=== PATIENT | male | born 1935 | race Caucasian/White ===

== ENCOUNTER 2019-02-15 01:53 | Inpatient (IN) | payer BC, OTHER ==
[~2019-02-15] VITALS: Ht 175.3 cm; Wt 82.0 kg
[~2019-02-15 01:53] MED LIST: ACET325T33 GTB; BROM2.5T16 GTB; CARB1TAB34; ENOX40DI2 SC; Ipratropium 0.02% (Neb) HHN; LANS-6 GTB; LEVA1.25 HHN; LEVO500T10 PO; QUET25TA33 PO; QUET50TA22 PO
[2019-02-15] MEDS ORDERED: SODIUM CHLORIDE 0.9% 1L BAG IV* STA (02:03)
--- NOTE | 2019-02-15 02:51 | ERD ---
ER Documentation Chief Complaint Chief Complaint bib ra from residential for sob, fever, HPI 83-year-old male brought in from [facility] facility for fever and shortness of breath that started tonight. Patient is nonverbal and unable to provide a history. ROS Unable to obtain due to altered mental status Medications Home Meds Reported Medications Quetiapine Fumarate* (Quetiapine Fumarate*) 25 Mg Tablet, 25 MG PO QHS for 30 Days, #30 TAB 02/15/19 Carbidopa/Levodopa (Carbidopa-Levodopa 25-100 Tab) 1 Each Tablet, for 90 Days TAKE 2 TABLET(S) BY MOUTH 3 TIMES A DAYTAKE 2 TABLET(S) BY MOUTH 3 TIMES A DAY 02/15/19 Quetiapine Fumarate* (Quetiapine Fumarate*) 50 Mg Tablet, 50 MG PO QHS for 90 Days 02/15/19 Allergies Allergies: Coded Allergies: Sulfa (Sulfonamide Antibiotics) (Verified Allergy, Unknown, 02/15/19) latex (Verified Allergy, Unknown, 02/15/19) PMhx/Soc Medical and Surgical Hx: Unable to obtain Hx Neurological Disorder: Yes (s/d ) Hx Psychiatric Problems: Yes (dementia ) Hx Alcohol Use: No Hx Substance Use: No Hx Tobacco Use: No Smoking Status: Never smoker FmHx Unable to obtain Physical Exam Vitals Vital Signs Date Temp Pulse Resp B/P (MAP) Pulse Ox O2 O2 Flow FiO2 Time Delivery Rate 02/15/19 95 6.0 02:22 02/15/19 Nasal 6 02:10 Cannula 02/15/19 98.7 119 40 110/75 87 02:01 (87) 02/15/19 Nasal 6.0 02:01 Cannula 02/15/19 128 36 88 Nasal 3.0 02:00 Cannula Physical Exam Const: Chronically ill-appearing, in some respiratory distress, cachectic Head: Atraumatic Eyes: Normal Conjunctiva ENT: Dry mucous membranes. Normal external Ears, Nose and Mouth. Neck: Full range of motion. No meningismus. Resp: tachypneic, diminished breath sounds bilaterally, no wheezing or rales Cardio: Tachycardic with regular rhythm, no murmurs Abd: Soft, non tender, non distended. Normal bowel sounds Skin: No petechiae or rashes Back: No midline or flank tenderness Ext: No cyanosis, or edema Neur: Awake and alert, nonverbal, contracted in all 4 extremities Result Diagram: 02/15/19 0203 02/15/19 0203 Results 24 hrs Laboratory Tests Test 02/15/19 02:02 02/15/19 02:03 POC Venous Lactate 2.3 mmol/L White Blood Count 21.4 10^3/ul Red Blood Count 5.46 10^6/ul Hemoglobin 16.2 g/dl Hematocrit 49.7 % Mean Corpuscular Volume 91.0 fl Mean Corpuscular Hemoglobin 29.7 pg Mean Corpuscular Hemoglobin Concent 32.6 g/dl Red Cell Distribution Width 12.9 % Platelet Count 208 10^3/UL Mean Platelet Volume 11.1 fl Immature Granulocytes % 0.500 % Neutrophils % 94.2 % Lymphocytes % 1.7 % Monocytes % 3.0 % Eosinophils % 0.1 % Basophils % 0.5 % Nucleated Red Blood Cells % 0.0 /100WBC Immature Granulocytes # 0.100 10^3/ul Neutrophils # 20.2 10^3/ul Lymphocytes # 0.4 10^3/ul Monocytes # 0.6 10^3/ul Eosinophils # 0.0 10^3/ul Basophils # 0.1 10^3/ul Nucleated Red Blood Cells # 0.0 10^3/ul Prothrombin Time 13.5 Sec Prothrombin Time Ratio 1.1 INR International Normalized Ratio 1.02 Activated Partial Thromboplast Time 36.3 Sec Sodium Level 140 mmol/L Potassium Level 3.7 mmol/L Chloride Level 105 mmol/L Carbon Dioxide Level 27 mmol/L Anion Gap 8 Blood Urea Nitrogen 26 mg/dl Creatinine 1.12 mg/dl Est Glomerular Filtrat Rate mL/min mL/min Glucose Level 193 mg/dl Calcium Level 9.3 mg/dl Total Bilirubin 0.7 mg/dl Direct Bilirubin 0.00 mg/dl Indirect Bilirubin 0.7 mg/dl Aspartate Amino Transf (AST/SGOT) 36 IU/L Alanine Aminotransferase (ALT/SGPT) 14 IU/L Alkaline Phosphatase 48 IU/L Troponin I < 0.012 ng/ml Total Protein 6.8 g/dl Albumin 3.3 g/dl Globulin 3.50 g/dl Albumin/Globulin Ratio 0.94 Current Medications Medications Dose Sig/Burton Start Time Status Last (Trade) Ordered Route PRN Stop Time Admin Dose Reason Admin Sodium 2,340 ml BOLUS OVER 2 02/15/19 DC 02/15/19 Chloride HOURS STAT 02:03 02/15/19 02:10 (NS) IV* 02:05 Ondansetron 4 mg ER BRIDGE 02/15/19 HCl (Zofran PRN IV 03:30 Inj) NAUSEA/VOMITI 02/16/19 03:29 NG 650 mg ER BRIDGE 02/15/19 Acetaminophen PRN PO 03:30 (Tylenol .MILD PAIN 02/16/19 03:29 Tab) 1-3 OR TEMP Procedures/MDM EMERGENT LABS AND DIAGNOSTIC STUDIES: Lab Results above were reviewed and interpreted by me. CBC: Leukocytosis, concerning for infection likely secondary to infection. No anemia CMP: BUN elevated, likely secondary to dehydration. 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 Radiology Results as interpreted by Radiology below were reviewed by Lavinia Parkinson MD: Chest x-ray: Concerning for pneumonia Initial Nursing notes reviewed. Previous Medical Records requested via the Electronic Health Record. EMERGENCY DEPARTMENT COURSE / MEDICAL DECISION MAKING: Admit MDM: Patient presents with shortness of breath and hypoxia on room air. Presentation concerning for pneumonia. Treated with supplemental oxygenation for hypoxia with improvement. Broad-spectrum antibiotics and IV fluids given. Patient's infectious symptoms have not stabilized, and the patient is at risk of rapid decompensation. The patient will be admitted for careful hydration, antibiotic therapy, and infectious source control. Spoke with the patient's son, Sorin Lowry, who is power of sports attorney. Although the patient's advanced directive states that he does not want any emergent resuscitative treatment, including antibiotics, the patient's son would like us to treat him with antibiotics, fluids, and supplemental oxygenation. He just clarified that he does not want CPR or intubation. Severe Sepsis criteria: Infectious source: Pneumonia End organ damage indicated by: Lactate > 2.0 mmol/L Acute Resp Failure (sat < 92% w/o oxygen) Sepsis Management: Time of recognition of severe sepsis: 0200 Within 3 hours of recognition: Blood cultures x 2 before broad-spectrum antibiotics: Yes 30 ml/kg NS bolus Completed Initial lactate 2.3 Repeat lactate pending Septic Shock Assessment: Any lactic acid > 4.0 No Persistent hypotension (SBP < 90 or 40 mmHg drop, MAP < 65) despite 30 mL/kg IV fluid bolus No Accepting Care Team Current data and ongoing care discussed. Admitting Physician: Dr. Banda Transmission Tester(s): Outstanding Data: cultures Critical Care Time: 40 minutes Treatments/Evaluations: Close monitoring and treatment of unstable vital signs, cardiorespiratory, and neurologic status, while maintaining tight balance of fluid, respiratory, and cardiac interventions. This includes the administration of emergency fluid management while maintaining close respiratory support as well as the provision of immediate and broad-spectrum antibiotic therapy, while performing a simultaneous assessment for possible sources in order to direct ta rgeted therapy. This time includes discussing the case with the patient and the patients family.This time also includes the consideration for invasive and chemical support to prevent cardiopulmonary collapse. This time does not include all procedures stated elsewhere in this record. This time also includes reviewing old records, labs and radiological studies. This time includes examining and reexamining the patient. Additionally, this time also includes arranging care with admitting and consulting physicians. Departure Diagnosis: Primary Impression: Severe sepsis Additional Impression: Pneumonia Pneumonia type: due to unspecified organism Laterality: left Lung location: unspecified part of lung Qualified Codes: J18.9 - Pneumonia, unspecified organism Condition: Serious ISHA PARKINSON MD Feb 15, 2019 02:51
[2019-02-15] MEDS ORDERED: SOD CHLORIDE 0.9% 1,000 ML IV SCH (03:29)
[2019-02-15] MEDS ORDERED: ACETAMINOPHEN 325 MG TAB PO PRN ×2 (03:30)
[2019-02-15] MEDS ORDERED: ONDANSETRON 4 MG INJ IV PRN ×2 (03:30)
[2019-02-15] MEDS ORDERED: DOCUSATE SODIUM 100 MG CAP PO PRN (03:30)
[2019-02-15] MEDS ORDERED: BISACODYL (EC) 5 MG TAB PO PRN (03:30)
[2019-02-15] MEDS ORDERED: NACL 0.9% 3 ML SYG IV SCH (03:30)
[2019-02-15] MEDS ORDERED: VANCOMYCIN IV PER PHARMACY XX SCH (03:30)
--- NOTE | 2019-02-15 03:33 | HP ---
Date/Time of Note Date/Time of Note DATE: 02/15/19 TIME: 03:33 Assessment/Plan VTE Prophylaxis Pharmacological prophylaxis: heparin Lines/Catheters IV [facility]from [facility] Saline Lock Assessment/Plan Hospital Course This is a 83-year-old male being admitted to the telemetry floor for: #1 severe sepsis: Secondary to aspiration pneumonia/healthcare associated pneumonia, recurrent vs. residual. Patient was recently hospitalized at an outside hospital and then taken to [facility]. We will put the patient on broad-spectrum antibiotics of vancomycin and Zosyn. Await culture results. Trend lactic acid levels initial was 2.3. He did receive fluid resuscitation in the emergency department, will continue gentle IV fluid hydration. #2 Healthcare associated pneumonia versus aspiration pneumonia: recurrent vs. residual. Chest x-ray does show left-sided infiltrates. Broad-spectrum antibiotics of vancomycin and Zosyn. Culture results are pending. #3 Hypoxia: Likely secondary to underlying pneumonia. Supplemental O2. Monitor closely for decompensation. #4 advanced Parkinson's: Continue Sinemet, continue supportive care #5 chronic debility: Secondary likely to underlying Parkinson's. Continue supportive care. #6 dysphagia: Patient is status post G-tube, dietary consult for G-tube feedings. #7 DVT GI prophylaxis: Heparin subcu, no GI prophylaxis indicated CODE STATUS: Full code: I did have a lengthy discussion with the son at the bedside as mentioned in the HPI. At the current time he will be a full code as per the decision by the power of family law attorney his son. Further goals of care will be discussed with the son and the mother through the hospital course. Will consult palliative care dr. cuello to assist in goals of care and clarification of the advanced directives with the family. Further treatment strategy will be implemented as per the clinical course POWER OF RIB KNITTER CONTACT INFO: SON (MICHAEL BOWEN) [phone] Result Diagram: 02/15/19 0203 02/15/19 0203 Results 24hrs Laboratory Tests Test 02/15/19 02:02 02/15/19 02:03 POC Venous Lactate 2.3 *H White Blood Count 21.4 H Red Blood Count 5.46 Hemoglobin 16.2 Hematocrit 49.7 Mean Corpuscular Volume 91.0 Mean Corpuscular Hemoglobin 29.7 Mean Corpuscular Hemoglobin Concent 32.6 Red Cell Distribution Width 12.9 Platelet Count 208 Mean Platelet Volume 11.1 H Immature Granulocytes % 0.500 H Neutrophils % 94.2 H Lymphocytes % 1.7 L Monocytes % 3.0 Eosinophils % 0.1 Basophils % 0.5 Nucleated Red Blood Cells % 0.0 Immature Granulocytes # 0.100 H Neutrophils # 20.2 H Lymphocytes # 0.4 L Monocytes # 0.6 Eosinophils # 0.0 Basophils # 0.1 Nucleated Red Blood Cells # 0.0 Prothrombin Time 13.5 Prothrombin Time Ratio 1.1 INR International Normalized Ratio 1.02 Activated Partial Thromboplast Time 36.3 H Sodium Level 140 Potassium Level 3.7 Chloride Level 105 Carbon Dioxide Level 27 Anion Gap 8 Blood Urea Nitrogen 26 H Creatinine 1.12 Est Glomerular Filtrat Rate mL/min Glucose Level 193 Calcium Level 9.3 Total Bilirubin 0.7 Direct Bilirubin 0.00 Indirect Bilirubin 0.7 Aspartate Amino Transf (AST/SGOT) 36 Alanine Aminotransferase (ALT/SGPT) 14 Alkaline Phosphatase 48 Troponin I < 0.012 Total Protein 6.8 Albumin 3.3 Globulin 3.50 H Albumin/Globulin Ratio 0.94 HPI/ROS Admit Date/Time Admit Date/Time Hx of Present Illness Chief complaint: Fever, shortness of breath, productive cough History was obtained from the son at the bedside as patient was unable to provide history given his clinical condition and nonverbal at baseline. This is a 83-year-old male with a past medical history of advanced age Parkinson's disease who presented from [facility] with fever shortness of breath and a productive cough. Patient's son was with him at the bedside who is a power of family law attorney. Was recently taken to [facility] approximately 2 days ago after a approximate 4-day stay at outside hospital where he was treated for aspiration pneumonia. Patient was discharged to [facility] approximate 2 days ago and then prior to arrival to the emergency department he was noted to have a cough shortness of breath and a fever. He has a G-tube in place. Of note patient did have advanced directives in his chart which stated that he did not want to have CPR or intubation. He also did not want any IV fluids or antibiotics or artificial feedings or dialysis. I did have a lengthy discussion with his son regarding his advanced directives and the son states that when his father signed it he was not entirely clear on the exact details of the advanced directive. The son who is a power of family law attorney would like the patient to be a full code. He would like to discuss the case with his mother further and then make a decision regarding CODE STATUS and goals of care. The son though is certain that his father did not want to be in a prolonged vegetative state. Allergies: Sulfa Medications: See SARAHI BIANCHI Subjective hx not possible: pt non-verbal, pt critical PMH/Family/Social Past Medical History Advanced Parkinson's disease, chronic debility, dysphagia status post G-tube Medications Current Medications Ondansetron HCl (Zofran Inj) 4 mg ER BRIDGE PRN IV NAUSEA/VOMITING; Start 02/15/19 at 03:30; Stop 02/16/19 at 03:29 Acetaminophen (Tylenol Tab) 650 mg ER BRIDGE PRN PO .MILD PAIN 1-3 OR TEMP; Start 02/15/19 at 03:30; Stop 02/16/19 at 03:29 Vancomycin HCl (Vanco Iv Per Pharmacy) VANCOMYCIN PER PHARMACY PER PROTOCOL XX ; Start 02/15/19 at 03:30; Status UNV Piperacillin Sod/ Tazobactam Sod 100 ml @ 200 mls/hr Q6 IVPB ; Start 02/15/19 at 06:00; Status UNV Coded Allergies: Sulfa (Sulfonamide Antibiotics) (Verified Allergy, Unknown, 02/15/19) latex (Verified Allergy, Unknown, 02/15/19) Past Surgical History G-tube Family History Significant Family History: no pertinent family hx Social History Unable to obtain Smoking Status: Unknown if ever smoked Exam/Review of Systems Vital Signs Vitals Vital Signs Date Temp Pulse Resp B/P (MAP) Pulse Ox O2 O2 Flow FiO2 Time Delivery Rate 02/15/19 103 24 106/62 97 Nasal 6.0 03:00 (77) Cannula 02/15/19 98.7 02:01 Exam Exam General: Patient currently lying in bed he does track with his eyes, but is not displaying any movements and appears somewhat contracted. HEENT: Atraumatic, normocephalic. The pupils are equal, round and reactive. Extraocular motor are intact, mucous membranes dry Neck: Supple with full range of motion. No rigidity or meningismus Chest: Nontender Lungs: Coarse breath sounds bilaterally, greater on the left Heart: Sinus tachycardia Abdomen: Soft , G-tube in place, nontender, nondistended , bowel sounds are present. No guarding no rebound tenderness , No masses or organomegaly. No costovertebral temporal angle mass Extremities: Normal to inspection, no edema no cyanosis Neurologic: Awake, he does track with his eyes. Nonverbal. Further neurological exam limited given patient's clinical status and advanced Parkinson 's. Additional Comments EKG Sinus rhythm at 116 bpm with occasional PVCs Normal axis Normal intervals PROCEDURE: XR Chest. CLINICAL INDICATION: Sepsis. TECHNIQUE: Single frontal chest x-ray. COMPARISON: None. FINDINGS: Left subclavian dual-chamber pacemaker is present. Heart is normal size.. There is elevated right hemidiaphragm. There is patchy infiltrate at the left mid lung field. There is right basilar atelectasis. There is small right pleural effusion. There is no pneumothorax. There is partially visualized left shoulder replacement.. IMPRESSION: Cardiomegaly. Left perihilar infiltrate. Elevated right hemidiaphragm with basilar atelectasis. Small right pleural effusion. RPTAT: HMVK .Eliezer Blackman MD, MD Date Time Electronically viewed and signed by .Eliezer Blackman MD, on 02/15/2019 02:43 .K/ CC: ISHA LYNCH MD [id number] CHRISTY SHEFFIELD Feb 15, 2019 03:33
[2019-02-15] MEDS ORDERED: LEVALBUTEROL (NEB) 1.25 MG/0.5 ML AMP HHN PRN ×2 (04:00→11:30)
[2019-02-15] MEDS ORDERED: IPRATROPIUM (NEB) 0.5 MG/2.5 ML AMP HHN PRN ×2 (04:00→11:30)
[2019-02-15] MEDS ORDERED: VANCOMYCIN HCL 2 GM in SOD CHLORIDE 0.9% 500 ML IVPB ONE (05:00)
[2019-02-15 05:25] VITALS: BP 100/53; PULSE 101; RESP 20
[2019-02-15] MEDS ORDERED: HEPARIN 5,000 UNIT/1 ML VIAL SC SCH (06:00)
[2019-02-15] MEDS: PIPER-TAZO 3.375 GM IV (PMX) 100 ML IVPB SCH ×4 (07:01→23:50)
[2019-02-15 08:01] VITALS: BP 124/58; PULSE 99; RESP 18
[2019-02-15] MEDS ORDERED: CARBIDOPA/LEVODOPA (25/100) TAB PO SCH (09:00)
[2019-02-15] MEDS: CARBIDOPA/LEVODOPA (25/100) TAB GTB SCH (09:49)
--- NOTE | 2019-02-15 11:00 | PN ---
Date/Time of Note Date/Time of Note DATE: 02/15/19 TIME: 10:41 Assessment/Plan VTE Prophylaxis Pharmacological prophylaxis: LMWH Lines/Catheters IV Catheter Type (from [facility]): Saline Lock Assessment/Plan Hospital Course Subjective: Patient is nonverbal, will track, extremely lethargic, but tries to follow commands. Son [power of title attorney], , caregiver at bedside. We discussed overall clinical status. Objective: General: Alert, lethargic +++, extremely slow movements, tries to follow commands , non verbal as of yet HEENT: NC/ AT. PERRL. Neck: supple CVS: S1, S2, RRR. no murmurs. no pain on chest wall palpation Lungs: diminished ++, coarse bs Abd: soft, nontender, +BS, PEG tube without oozing or cellulitis Ext: no edema skin: diffuse different age range ecchymoses assessment and plan: 83-year-old male with a past medical history of advanced Parkinson's, dysphagia status post PEG tube placement in the last 4 weeks, recent hospitalization who was sent to us from longterm facility for fever and shortness of breath where he had been only for a couple of weeks He is being managed admitted and managed as follows: 1. Sepsis secondary to pneumonia -Patient was also just recently discharged after being managed for aspiration pneumonia, residual versus recurrent? -Continue empiric antibiotics -Ensure respiratory, urine, sputum cultures were obtained -Urinalysis and urine cultures pending, ensure these were sent as well. 2. Advanced Parkinson's on Sinemet therapy -We will hold Sinemet transiently due to severe lethargy, recommend to resume once patient's somewhat back to baseline. -Per family's report, until about 4 weeks ago, patient was able to transfer from bed to wheelchair with 1 person support 3. Chronic debility and lethargy likely secondary to #2 4. Dysphagia with aspiration concerns now on tube feedings 5. Hard of hearing Disposition: Spoke at length with patient's son and his family at the bedside, family have opted for patient to be a DO NOT RESUSCITATE and DO NOT INTUBATE, but at this time they wants continued aggressive measures. They also feel patient was prematurely discharged from the other hospital, but I have explained to them that this is a normal process. Patient cannot complete full antibiotic course in the hospital, he will be discharged to discontinue complete antibiotic course at the nursing facility. They have verbalized understanding. Result Diagram: 02/15/19 0203 02/15/19 0203 Results 24hrs Laboratory Tests Test 02/15/19 02:02 02/15/19 02:03 02/15/19 04:30 02/15/19 05:42 POC Venous Lactate 2.3 *H White Blood Count 21.4 H Red Blood Count 5.46 Hemoglobin 16.2 Hematocrit 49.7 Mean Corpuscular 91.0 Volume Mean Corpuscular 29.7 Hemoglobin Mean Corpuscular 32.6 Hemoglobin Concent Red Cell 12.9 Distribution Width Platelet Count 208 Mean Platelet 11.1 H Volume Immature 0.500 H Granulocytes % Neutrophils % 94.2 H Lymphocytes % 1.7 L Monocytes % 3.0 Eosinophils % 0.1 Basophils % 0.5 Nucleated Red 0.0 Blood Cells % Immature 0.100 H Granulocytes # Neutrophils # 20.2 H Lymphocytes # 0.4 L Monocytes # 0.6 Eosinophils # 0.0 Basophils # 0.1 Nucleated Red 0.0 Blood Cells # Prothrombin Time 13.5 Prothrombin Time 1.1 Ratio INR International 1.02 Normalized Ratio Activated 36.[address] Time Sodium Level 140 Potassium Level 3.7 Chloride Level 105 Carbon Dioxide 27 Level Anion Gap 8 Blood Urea 26 H Nitrogen Creatinine 1.12 Est Glomerular Filtrat Rate mL/min Glucose Level 193 Calcium Level 9.3 Total Bilirubin 0.7 Direct Bilirubin 0.00 Indirect Bilirubin 0.7 Aspartate Amino 36 Transf (AST/SGOT) Alanine 14 Aminotransferase ( ALT/SGPT) Alkaline 48 Phosphatase Troponin I < 0.012 Total Protein 6.8 Albumin 3.3 Globulin 3.50 H Albumin/Globulin 0.94 Ratio Blood Gas Specimen Blood arterial Source Arterial Blood 02/15/2019 4:45:46 Date Drawn AM Arterial Blood pH 7.456 H (Temp corrected) Arterial Blood 28.0 L pCO2 (Temp correct) Arterial Blood pO2 77.9 L (Temp corrected) Arterial Blood 19.3 L HCO3 Arterial Blood -2.9 Base Excess Arterial Blood 96.1 Oxygen Saturation Stuart Test ACCEPTAB Arterial Blood Gas Right Radial Puncture Site Arterial 0.7 Blood Carboxyhemog lobin Arterial Blood 0.4 Methemoglobin Blood Gas A-a O2 167.9 H Differential Oxyhemoglobin 95.0 Percent Blood Gas 37.0 Temperature Blood Gas Modality NASAL CANNULA FiO2 39.0 Blood Gas Notified KM Whom Blood Gas Notified 02/15/2019 4:56:19 Time AM Lactic Acid Level 1.5 Test 02/15/19 06:59 Lactic Acid Level 1.3 Exam/Review of Systems Exam Vitals Vital Signs Date Temp Pulse Resp B/P (MAP) Pulse Ox O2 O2 Flow FiO2 Time Delivery Rate 02/15/19 95 5.0 09:29 02/15/19 98.5 99 18 124/58 08:01 (80) 02/15/19 Nasal 06:20 Cannula Results Results 24hrs Laboratory Tests Test 02/15/19 02:02 02/15/19 02:03 02/15/19 04:30 02/15/19 05:42 POC Venous Lactate 2.3 *H White Blood Count 21.4 H Red Blood Count 5.46 Hemoglobin 16.2 Hematocrit 49.7 Mean Corpuscular 91.0 Volume Mean Corpuscular 29.7 Hemoglobin Mean Corpuscular 32.6 Hemoglobin Concent Red Cell 12.9 Distribution Width Platelet Count 208 Mean Platelet 11.1 H Volume Immature 0.500 H Granulocytes % Neutrophils % 94.2 H Lymphocytes % 1.7 L Monocytes % 3.0 Eosinophils % 0.1 Basophils % 0.5 Nucleated Red 0.0 Blood Cells % Immature 0.100 H Granulocytes # Neutrophils # 20.2 H Lymphocytes # 0.4 L Monocytes # 0.6 Eosinophils # 0.0 Basophils # 0.1 Nucleated Red 0.0 Blood Cells # Prothrombin Time 13.5 Prothrombin Time 1.1 Ratio INR International 1.02 Normalized Ratio Activated 36.[address] Time Sodium Level 140 Potassium Level 3.7 Chloride Level 105 Carbon Dioxide 27 Level Anion Gap 8 Blood Urea 26 H Nitrogen Creatinine 1.12 Est Glomerular Filtrat Rate mL/min Glucose Level 193 Calcium Level 9.3 Total Bilirubin 0.7 Direct Bilirubin 0.00 Indirect Bilirubin 0.7 Aspartate Amino 36 Transf (AST/SGOT) Alanine 14 Aminotransferase ( ALT/SGPT) Alkaline 48 Phosphatase Troponin I < 0.012 Total Protein 6.8 Albumin 3.3 Globulin 3.50 H Albumin/Globulin 0.94 Ratio Blood Gas Specimen Blood arterial Source Arterial Blood 02/15/2019 4:45:46 Date Drawn AM Arterial Blood pH 7.456 H (Temp corrected) Arterial Blood 28.0 L pCO2 (Temp correct) Arterial Blood pO2 77.9 L (Temp corrected) Arterial Blood 19.3 L HCO3 Arterial Blood -2.9 Base Excess Arterial Blood 96.1 Oxygen Saturation Stuart Test ACCEPTAB Arterial Blood Gas Right Radial Puncture Site Arterial 0.7 Blood Carboxyhemog lobin Arterial Blood 0.4 Methemoglobin Blood Gas A-a O2 167.9 H Differential Oxyhemoglobin 95.0 Percent Blood Gas 37.0 Temperature Blood Gas Modality NASAL CANNULA FiO2 39.0 Blood Gas Notified KM Whom Blood Gas Notified 02/15/2019 4:56:19 Time AM Lactic Acid Level 1.5 Test 02/15/19 06:59 Lactic Acid Level 1.3 Medications Medication Current Medications Ondansetron HCl (Zofran Inj) 4 mg ER BRIDGE PRN IV NAUSEA/VOMITING; Start 02/15/19 at 03:30; Stop 02/16/19 at 03:29 Acetaminophen (Tylenol Tab) 650 mg ER BRIDGE PRN PO .MILD PAIN 1-3 OR TEMP; Start 02/15/19 at 03:30; Stop 02/16/19 at 03:29 Vancomycin HCl (Vanco Iv Per Pharmacy) VANCOMYCIN PER PHARMACY PER PROTOCOL XX ; Start 02/15/19 at 03:30 Piperacillin Sod/ Tazobactam Sod 100 ml @ 200 mls/hr Q6 IVPB Last administered on 02/15/19at 07:01; Admin Dose 200 MLS/HR; Start 02/15/19 at 06:00 Sodium Chloride 1,000 ml @ 40 mls/hr Q24H IV Last administered on 02/15/19at 03:29; Admin Dose 40 MLS/HR; Start 02/15/19 at 03:29; Stop 02/15/19 at 15:28 IV Flush (NS 3 ml) 3 ml PER PROTOCOL IV ; Start 02/15/19 at 03:30 Ondansetron HCl (Zofran Inj) 4 mg Q6H PRN IV NAUSEA/VOMITING; Start 02/15/19 at 03:30 Docusate Sodium (Colace) 100 mg Q12H PRN PO .CONSTIPATION; Start 02/15/19 at 03:30 Bisacodyl (Dulcolax) 5 mg DAILY PRN PO .CONSTIPATION; Start 02/15/19 at 03:30 Heparin Sodium (Porcine) (Heparin (5000 Units/1ml)) 5,000 unit Q8 SC Last administered on 02/15/19at 07:02; Admin Dose 5,000 UNIT; Start 02/15/19 at 06:00 Levalbuterol (Xopenex Neb) 1.25 mg Q4H RESP THERAPY PRN HHN SHORTNESS OF ADNIEL TH; Start 02/15/19 at 04:00 Ipratropium [place] (Atrovent 0.02% (Neb)) 0.5 mg Q4H RESP THERAPY PRN HHN SHORTNESS OF BREATH; Start 02/15/19 at 04:00 Vancomycin/Sodium Chloride 250 ml @ 83.333 mls/ hr Q24H IVPB ; Start 02/16/19 at 05:00 Miscellaneous Information (*Rx Drug Level Order Reminder*) VANCOMYCIN TROUGH LEVEL 0400 ONCE XX ; Start 02/18/19 at 04:00; Stop 02/18/19 at 04:01 Acetaminophen (Tylenol Tab) 650 mg Q6H PRN GTB .PAIN 1-3 OR TEMP; Start 02/15/19 at 09:30 Carbidopa/Levodopa (Sinemet (25/ 100)) 1 tab DAILY GTB Last administered on 02/15/19at 09:49; Admin Dose 1 TAB; Start 02/15/19 at 09:00 Quetiapine Fumarate (Seroquel) 50 mg QHS GTB ; Start 02/15/19 at 21:00 NADEEM ASHLEY Feb 15, 2019 10:51
[2019-02-15 11:02] VITALS: BP 127/61; PULSE 90; RESP 18
[2019-02-15 12:44] VITALS: Ht 175.3 cm; Wt 82.0 kg
[2019-02-15] MEDS: LEVALBUTEROL (NEB) 0.63 MG/3 ML AMP HHN SCH ×2 (13:07→19:27)
[2019-02-15 16:08] VITALS: BP 124/58; PULSE 89; RESP 18
[2019-02-15 20:00] VITALS: BP 130/65; PULSE 79; RESP 20
[2019-02-15] MEDS ORDERED: QUETIAPINE 25 MG TAB GTB SCH (21:00)
[2019-02-15] MEDS ORDERED: QUETIAPINE 25 MG TAB PO SCH (21:00)
[2019-02-15] MEDS: QUETIAPINE 25 MG TAB GTB SCH (21:26)
[2019-02-16] VITALS: BP 101/51; PULSE 82; RESP 18
[2019-02-16] MEDS: LEVALBUTEROL (NEB) 0.63 MG/3 ML AMP HHN SCH ×4 (02:04→19:58)
[2019-02-16 04:00] VITALS: BP 103/55; PULSE 81; RESP 18
[2019-02-16] MEDS: PIPER-TAZO 3.375 GM IV (PMX) 100 ML IVPB SCH ×3 (05:46→17:25)
[2019-02-16] MEDS: VANCOMYCIN 1.25 GM/NS 250 ML 250 ML IVPB SCH (05:48)
[2019-02-16 07:07] VITALS: BP 124/59; PULSE 77; RESP 22
[2019-02-16] MEDS: ACETAMINOPHEN 325 MG TAB GTB PRN ×2 (09:08→16:01)
--- NOTE | 2019-02-16 11:05 | PN ---
Date/Time of Note Date/Time of Note DATE: 02/16/19 TIME: 11:03 Assessment/Plan VTE Prophylaxis [place] [facility] [place] risk: 9 SCD applied ([place] [facility] [place] Yes Pharmacological prophylaxis: heparin Lines/Catheters IV Catheter Type (from [facility]): Saline Lock Urinary Cath still in place: Yes Reason Cath still needed: urinary retention Assessment/Plan Problems: (1) Severe sepsis Status: Acute Comment: This is clinically improving with the IV antibiotic therapy. Please note he does have an abnormal chest x-ray, but normal urinalysis (2) Pneumonia Status: Acute Comment: Left lung pneumonia based on chest x-ray findings, clinically improving Qualifiers: Pneumonia type: due to unspecified organism Laterality: left Lung location: unspecified part of lung Qualified Codes: J18.9 - Pneumonia, unspecified organism (3) Parkinson's disease dementia Status: Chronic Comment: This time I believe is appropriate to go ahead and resume the carbidopa levodopa for him Qualifiers: Dementia behavioral disturbance: without behavioral disturbance Qualified Codes: G20 - Parkinson's disease; F02.80 - Dementia in other diseases classified elsewhere without behavioral disturbance (4) Nonverbal Status: Chronic Comment: Noted. (5) History of gastrostomy tube placement Status: Chronic Comment: Receiving enteral nutrition via G-tube (6) Debility Status: Chronic Comment: Continue to try and work with him and avoid any type of decubitus ulcers Result Diagram: 02/16/19 0525 02/16/19 0525 Results 24hrs Laboratory Tests Test 02/15/19 11:30 02/16/19 05:25 Urine Color YELLOW Urine Clarity CLEAR Urine pH 6.0 Urine Specific [place] 1.019 Urine Ketones TRACE A Urine Nitrite NEGATIVE Urine Bilirubin NEGATIVE Urine Urobilinogen NEGATIVE Urine Leukocyte Esterase NEGATIVE Urine Hemoglobin NEGATIVE Urine Glucose NEGATIVE Urine Total Protein NEGATIVE White Blood Count 11.0 #H Red Blood Count 4.25 #L Hemoglobin 12.8 #L Hematocrit 39.3 #L Mean Corpuscular Volume 92.5 Mean Corpuscular Hemoglobin 30.1 Mean Corpuscular Hemoglobin Concent 32.6 Red Cell Distribution Width 13.0 Platelet Count 178 Mean Platelet Volume 11.5 H Immature Granulocytes % 0.400 Neutrophils % 80.3 H Lymphocytes % 9.0 L Monocytes % 6.1 Eosinophils % 3.4 Basophils % 0.8 Nucleated Red Blood Cells % 0.0 Immature Granulocytes # 0.040 H Neutrophils # 8.9 H Lymphocytes # 1.0 Monocytes # 0.7 Eosinophils # 0.4 Basophils # 0.1 Nucleated Red Blood Cells # 0.0 Sodium Level 139 Potassium Level 3.8 Chloride Level 108 Carbon Dioxide Level 27 Anion Gap 4 L Blood Urea Nitrogen 23 H Creatinine 1.16 Est Glomerular Filtrat Rate mL/min Glucose Level 106 # Hemoglobin A1c 5.4 Lactic Acid Level 1.2 Calcium Level 8.5 Magnesium Level 1.8 Thyroid Stimulating Hormone (TSH) 1.380 Subjective 24 Hr Interval Summary Free Text/Dictation Patient has been off of his Sinemet and is nonverbal at this moment Subjective hx not possible: pt non-verbal Exam/Review of Systems Exam Vitals Vital Signs Date Temp Pulse Resp B/P (MAP) Pulse Ox O2 O2 Flow FiO2 Time Delivery Rate 02/16/19 97 2.0 08:55 02/16/19 91 16 Nasal 08:55 Cannula 02/16/19 98.5 124/59 07:07 (80) 02/15/19 33 19:27 Intake and Output 02/15/19 02/15/19 02/16/19 1515:00 23:00 07:00 IntakeIntake Total 100 ml 990 ml OutputOutput Total 600 ml BalanceBalance 100 ml 390 ml Constitutional: non-verbal Respiratory: clear to auscultation, normal air movement Cardiovascular: regular rate and rhythm, nl pulses Gastrointestinal: soft, nl liver, spleen, non-tender Results Results 24hrs Laboratory Tests Test 02/15/19 11:30 02/16/19 05:25 Urine Color YELLOW Urine Clarity CLEAR Urine pH 6.0 Urine Specific [place] 1.019 Urine Ketones TRACE A Urine Nitrite NEGATIVE Urine Bilirubin NEGATIVE Urine Urobilinogen NEGATIVE Urine Leukocyte Esterase NEGATIVE Urine Hemoglobin NEGATIVE Urine Glucose NEGATIVE Urine Total Protein NEGATIVE White Blood Count 11.0 #H Red Blood Count 4.25 #L Hemoglobin 12.8 #L Hematocrit 39.3 #L Mean Corpuscular Volume 92.5 Mean Corpuscular Hemoglobin 30.1 Mean Corpuscular Hemoglobin Concent 32.6 Red Cell Distribution Width 13.0 Platelet Count 178 Mean Platelet Volume 11.5 H Immature Granulocytes % 0.400 Neutrophils % 80.3 H Lymphocytes % 9.0 L Monocytes % 6.1 Eosinophils % 3.4 Basophils % 0.8 Nucleated Red Blood Cells % 0.0 Immature Granulocytes # 0.040 H Neutrophils # 8.9 H Lymphocytes # 1.0 Monocytes # 0.7 Eosinophils # 0.4 Basophils # 0.1 Nucleated Red Blood Cells # 0.0 Sodium Level 139 Potassium Level 3.8 Chloride Level 108 Carbon Dioxide Level 27 Anion Gap 4 L Blood Urea Nitrogen 23 H Creatinine 1.16 Est Glomerular Filtrat Rate mL/min Glucose Level 106 # Hemoglobin A1c 5.4 Lactic Acid Level 1.2 Calcium Level 8.5 Magnesium Level 1.8 Thyroid Stimulating Hormone (TSH) 1.380 Medications Medication Current Medications Vancomycin HCl (Vanco Iv Per Pharmacy) VANCOMYCIN PER PHARMACY PER PROTOCOL XX ; Start 02/15/19 at 03:30 Piperacillin Sod/ Tazobactam Sod 100 ml @ 200 mls/hr Q6 IVPB Last administered on 02/16/19at 05:46; Admin Dose 200 MLS/HR; Start 02/15/19 at 06:00 IV Flush (NS 3 ml) 3 ml PER PROTOCOL IV ; Start 02/15/19 at 03:30 Ondansetron HCl (Zofran Inj) 4 mg Q6H PRN IV NAUSEA/VOMITING; Start 02/15/19 at 03:30 Docusate Sodium (Colace) 100 mg Q12H PRN PO .CONSTIPATION; Start 02/15/19 at 03:30 Bisacodyl (Dulcolax) 5 mg DAILY PRN PO .CONSTIPATION; Start 02/15/19 at 03:30 Vancomycin/Sodium Chloride 250 ml @ 83.333 mls/ hr Q24H IVPB Last administered on 02/16/19at 05:48; Admin Dose 83.333 MLS/HR; Start 02/16/19 at 05:00 Miscellaneous Information (*Rx Drug Level Order Reminder*) VANCOMYCIN TROUGH L [place] 0400 ONCE XX ; Start 02/18/19 at 04:00; Stop 02/18/19 at 04:01 Acetaminophen (Tylenol Tab) 650 mg Q6H PRN GTB .PAIN 1-3 OR TEMP Last administered on 02/16/19at 09:08; Admin Dose 650 MG; Start 02/15/19 at 09:30 Carbidopa/Levodopa (Sinemet (25/ 100)) 1 tab DAILY GTB Last administered on 02/15/19at 09:49; Admin Dose 1 TAB; Start 02/15/19 at 09:00; Status Hold Quetiapine Fumarate (Seroquel) 25 mg QHS GTB Last administered on 02/15/19at 21:26; Admin Dose 25 MG; Start 02/15/19 at 21:00 Enoxaparin Sodium (Lovenox) 40 mg DAILY SC ; Start 02/16/19 at 14:00 Ipratropium [place] (Atrovent 0.02% (Neb)) 0.5 mg Q2H RESP THERAPY PRN HHN SHORTNESS OF BREATH; Start 02/15/19 at 11:30 Levalbuterol (Xopenex Neb) 1.25 mg Q2H RESP THERAPY PRN HHN SHORTNESS OF BREATH; Start 02/15/19 at 11:30 Levalbuterol (Xopenex Neb) 0.63 mg Q6H RESP THERAPY HHN Last administered on 02/16/19at 08:52; Admin Dose 0.63 MG; Start 02/15/19 at 14:00; Stop 02/18/19 at 13:59 KEVIN ALAN MD Feb 16, 2019 11:05
[2019-02-16 11:34] VITALS: BP 118/65; PULSE 78; RESP 18
[2019-02-16] MEDS: ENOXAPARIN 40 MG/0.4 ML SYG SC SCH (13:25)
[2019-02-16 15:41] VITALS: BP 137/65; PULSE 81; RESP 18
[2019-02-16] MEDS: QUETIAPINE 25 MG TAB GTB SCH (20:57)
[2019-02-17] VITALS (8 sets, daily range): BP systolic 105–165; BP diastolic 51–78; PULSE 75–101; RESP 18–20
[2019-02-17] MEDS: PIPER-TAZO 3.375 GM IV (PMX) 100 ML IVPB SCH ×4 (00:57→17:26)
[2019-02-17] MEDS: LEVALBUTEROL (NEB) 0.63 MG/3 ML AMP HHN SCH ×4 (01:40→21:05)
[2019-02-17] MEDS: VANCOMYCIN 1.25 GM/NS 250 ML 250 ML IVPB SCH (05:08)
[2019-02-17] MEDS: CARBIDOPA/LEVODOPA (25/100) TAB GTB SCH (09:05)
[2019-02-17] MEDS: ENOXAPARIN 40 MG/0.4 ML SYG SC SCH (09:19)
--- NOTE | 2019-02-17 14:11 | PN ---
Date/Time of Note Date/Time of Note DATE: 02/17/19 TIME: 14:10 Assessment/Plan VTE Prophylaxis Risk score (from [facility] [place]0 risk: 5 SCD applied (from [facility] [place]): Yes Pharmacological prophylaxis: heparin Lines/Catheters IV Catheter Type (from [facility]): Saline Lock Urinary Cath still in place: Yes Reason Cath still needed: urinary retention Assessment/Plan Problems: (1) Parkinson's disease dementia Status: Chronic Comment: With resumption of the Sinemet he is doing a little bit better. However I think that we could try and add in a little bit of bromocriptine to see if this will help as well. Qualifiers: Dementia behavioral disturbance: without behavioral disturbance Qualified Codes: G20 - Parkinson's disease; F02.80 - Dementia in other diseases classified elsewhere without behavioral disturbance (2) Pneumonia Status: Acute Comment: Continue with IV antibiotic therapy with positive clinical response Qualifiers: Pneumonia type: due to unspecified organism Laterality: left Lung location: unspecified part of lung Qualified Codes: J18.9 - Pneumonia, unspecified organism (3) History of gastrostomy tube placement Status: Chronic Comment: Functional and being used for his nutrition (4) Debility Status: Chronic Comment: Noted. Result Diagram: 02/17/19 0506 02/17/19 0506 Results 24hrs Laboratory Tests Test 02/17/19 05:06 White Blood Count 11.3 H Red Blood Count 4.28 L Hemoglobin 12.9 L Hematocrit 39.8 L Mean Corpuscular Volume 93.0 Mean Corpuscular Hemoglobin 30.1 Mean Corpuscular Hemoglobin Concent 32.4 Red Cell Distribution Width 12.9 Platelet Count 193 Mean Platelet Volume 11.3 H Immature Granulocytes % 0.300 Neutrophils % 81.7 H Lymphocytes % 6.0 L Monocytes % 7.4 Eosinophils % 3.9 Basophils % 0.7 Nucleated Red Blood Cells % 0.0 Immature Granulocytes # 0.030 Neutrophils # 9.2 H Lymphocytes # 0.7 L Monocytes # 0.8 Eosinophils # 0.4 Basophils # 0.1 Nucleated Red Blood Cells # 0.0 Sodium Level 138 Potassium Level 3.8 Chloride Level 105 Carbon Dioxide Level 32 H Anion Gap 1 L Blood Urea Nitrogen 20 Creatinine 1.13 Est Glomerular Filtrat Rate mL/min Glucose Level 111 Calcium Level 8.5 Subjective 24 Hr Interval Summary Free Text/Dictation Patient remains nonverbal, but it tends to the question her a little bit better Subjective hx not possible: pt non-verbal Exam/Review of Systems Exam Vitals Vital Signs Date Temp Pulse Resp B/P (MAP) Pulse Ox O2 O2 Flow FiO2 Time Delivery Rate 02/17/19 86 16 98 Nasal 4.0 13:42 Cannula 02/17/19 98.0 132/67 11:55 (88) 02/17/19 36 01:40 Intake and Output 02/16/19 02/16/19 02/17/19 1515:00 23:00 07:00 IntakeIntake Total 100 ml 740 ml OutputOutput Total 750 ml 1850 ml BalanceBalance 100 ml -750 ml -1110 ml Constitutional: non-verbal Respiratory: clear to auscultation, normal air movement Cardiovascular: regular rate and rhythm, nl pulses Gastrointestinal: soft, nl liver, spleen, non-tender Results Results 24hrs Laboratory Tests Test 02/17/19 05:06 White Blood Count 11.3 H Red Blood Count 4.28 L Hemoglobin 12.9 L Hematocrit 39.8 L Mean Corpuscular Volume 93.0 Mean Corpuscular Hemoglobin 30.1 Mean Corpuscular Hemoglobin Concent 32.4 Red Cell Distribution Width 12.9 Platelet Count 193 Mean Platelet Volume 11.3 H Immature Granulocytes % 0.300 Neutrophils % 81.7 H Lymphocytes % 6.0 L Monocytes % 7.4 Eosinophils % 3.9 Basophils % 0.7 Nucleated Red Blood Cells % 0.0 Immature Granulocytes # 0.030 Neutrophils # 9.2 H Lymphocytes # 0.7 L Monocytes # 0.8 Eosinophils # 0.4 Basophils # 0.1 Nucleated Red Blood Cells # 0.0 Sodium Level 138 Potassium Level 3.8 Chloride Level 105 Carbon Dioxide Level 32 H Anion Gap 1 L Blood Urea Nitrogen 20 Creatinine 1.13 Est Glomerular Filtrat Rate mL/min Glucose Level 111 Calcium Level 8.5 Medications Medication Current Medications Vancomycin HCl (Vanco Iv Per Pharmacy) VANCOMYCIN PER PHARMACY PER PROTOCOL XX ; Start 02/15/19 at 03:30 Piperacillin Sod/ Tazobactam Sod 100 ml @ 200 mls/hr Q6 IVPB Last administered on 02/17/19at 11:42; Admin Dose 200 MLS/HR; Start 02/15/19 at 06:00 IV Flush (NS 3 ml) 3 ml PER PROTOCOL IV ; Start 02/15/19 at 03:30 Ondansetron HCl (Zofran Inj) 4 mg Q6H PRN IV NAUSEA/VOMITING; Start 02/15/19 at 03:30 Docusate Sodium (Colace) 100 mg Q12H PRN PO .CONSTIPATION; Start 02/15/19 at 03:30 Bisacodyl (Dulcolax) 5 mg DAILY PRN PO .CONSTIPATION; Start 02/15/19 at 03:30 Vancomycin/Sodium Chloride 250 ml @ 83.333 mls/ hr Q24H IVPB Last administered on 02/17/19at 05:08; Admin Dose 83.333 MLS/HR; Start 02/16/19 at 05:00 Miscellaneous Information (*Rx Drug Level Order Reminder*) VANCOMYCIN TROUGH LEVEL 0400 ONCE XX ; Start 02/18/19 at 04:00; Stop 02/18/19 at 04:01 Acetaminophen (Tylenol Tab) 650 mg Q6H PRN GTB .PAIN 1-3 OR TEMP Last administered on 02/16/19at 16:01; Admin Dose 650 MG; Start 02/15/19 at 09:30 Carbidopa/Levodopa (Sinemet (25/ 100)) 1 tab DAILY GTB Last administered on 02/17/19 09:05; Admin Dose 1 TAB; Start 02/15/19 at 09:00 Quetiapine Fumarate (Seroquel) 25 mg QHS GTB Last administered on 02/16/19at 20:57; Admin Dose 25 MG; Start 02/15/19 at 21:00 Enoxaparin Sodium (Lovenox) 40 mg DAILY SC Last administered on 02/17/19at 09:19; Admin Dose 40 MG; Start 02/16/19 at 14:00 Ipratropium [place] (Atrovent 0.02% (Neb)) 0.5 mg Q2H RESP THERAPY PRN HHN SHORTNESS OF BREATH; Start 02/15/19 at 11:30 Levalbuterol (Xopenex Neb) 1.25 mg Q2H RESP THERAPY PRN HHN SHORTNESS OF BREATH; Start 02/15/19 at 11:30 Levalbuterol (Xopenex Neb) 0.63 mg Q6H RESP THERAPY HHN Last administered on 02/17/19at 13:34; Admin Dose 0.63 MG; Start 02/15/19 at 14:00; Stop 02/18/19 at 13:59 KEVIN ALAN MD Feb 17, 2019 14:11
[2019-02-17] MEDS: QUETIAPINE 25 MG TAB GTB SCH (21:51)
[2019-02-17] MEDS: BROMOCRIPTINE 2.5 MG TAB GTB SCH (21:51)
[2019-02-18] MEDS: PIPER-TAZO 3.375 GM IV (PMX) 100 ML IVPB SCH ×2 (00:15→06:24)
[2019-02-18] MEDS: LEVALBUTEROL (NEB) 0.63 MG/3 ML AMP HHN SCH ×2 (01:41→10:58)
[2019-02-18] MEDS: VANCOMYCIN 1.25 GM/NS 250 ML 250 ML IVPB SCH (05:15)
[2019-02-18 07:40] VITALS: BP 133/62; PULSE 87; RESP 18
[2019-02-18] MEDS: BROMOCRIPTINE 2.5 MG TAB GTB SCH ×2 (08:17→20:27)
[2019-02-18] MEDS: CARBIDOPA/LEVODOPA (25/100) TAB GTB SCH (08:17)
[2019-02-18] MEDS: ENOXAPARIN 40 MG/0.4 ML SYG SC SCH (08:24)
--- NOTE | 2019-02-18 09:56 | PN ---
Date/Time of Note Date/Time of Note DATE: 02/18/19 TIME: 09:55 Assessment/Plan VTE Prophylaxis Risk score (from Ns)>0 risk: 6 SCD applied (from Nsg): Yes Pharmacological prophylaxis: LMWH Lines/Catheters IV Catheter Type (from Nrsg): Saline Lock Urinary Cath still in place: Yes Reason Cath still needed: other (indicate) Assessment/Plan Hospital Course SUBJECTIVE: No fevers overnight OBJECTIVE: Vital signs-see below PHYSICAL EXAM: Constitutional: Obtunded male, not in acute distress HEENT: Head atraumatic and normocephalic. Eyes: Kept closed tight w/exam. NECK: Supple without lymph node. CHEST: Rhonchi bilaterally. No wheezing HEART: S1, S2. Regular rate and rhythm. ABDOMEN: With G-tube. Soft/non tender with no rebound tenderness. Bowel sounds were present. EXTREMITIES: Contracted extremities. No cyanosis, clubbing or edema. NEUROLOGIC: Obtunded/nonverbal PSYCHOSOCIAL: Unable to assess INTEGUMENTARY: No open wounds. ASSESSMENT AND PLAN:83 yo M w/ Parkinson's disease, dementia, G-tube placed, transferred from [facility] with fever/SOB, found to have sepsis with pneumonia. Sepsis Source: Pneumonia -Clinically improving -De-escalate antibiotics to Levaquin x14 days duration. Pneumonia, likely healthcare associated Sputum culture: Stenotrophomonas maltophilia sensitive to fluoroquinolone -DC Zosyn/vancomycin and start patient on Levaquin x2 weeks duration. Will give a dose of IV with transition to GJ tomorrow. -As needed breathing treatments Parkinson's disease/dementia -Continue Sinemet/bromocriptine -Supportive care History of G-tube placed -Functional and is being used for nutrition. Debility -Plan to send back to SNF. Prophylaxis: Lovenox/Prevacid Disposition: Continue current management. Likely DC planning to SNF in the morning with oral Levaquin to complete 2 weeks course. Patient was seen in collaboration with Result Diagram: 02/18/19 0354 02/18/19 0354 Results 24hrs Laboratory Tests Test 02/18/19 03:54 White Blood Count 10.4 Red Blood Count 4.49 L Hemoglobin 13.5 L Hematocrit 41.7 L Mean Corpuscular Volume 92.9 Mean Corpuscular Hemoglobin 30.1 Mean Corpuscular Hemoglobin Concent 32.4 Red Cell Distribution Width 13.1 Platelet Count 192 Mean Platelet Volume 11.4 H Immature Granulocytes % 0.300 Neutrophils % 81.2 H Lymphocytes % 6.6 L Monocytes % 8.7 Eosinophils % 2.3 Basophils % 0.9 Nucleated Red Blood Cells % 0.0 Immature Granulocytes # 0.030 Neutrophils # 8.4 H Lymphocytes # 0.7 L Monocytes # 0.9 Eosinophils # 0.2 Basophils # 0.1 Nucleated Red Blood Cells # 0.0 Sodium Level 138 Potassium Level 3.9 Chloride Level 104 Carbon Dioxide Level 30 Anion Gap 4 L Blood Urea Nitrogen 17 Creatinine 1.13 Est Glomerular Filtrat Rate mL/min Glucose Level 99 Calcium Level 9.1 Vancomycin Level Trough 8.5 L Exam/Review of Systems Exam Vitals Vital Signs Date Temp Pulse Resp B/P (MAP) Pulse Ox O2 O2 Flow FiO2 Time Delivery Rate 02/18/19 98.0 87 18 133/62 98 07:40 (85) 02/18/19 Nasal 4.0 01:43 Cannula 02/18/19 36 01:08 Intake and Output 02/17/19 02/17/19 02/18/19 1515:00 23:00 07:00 IntakeIntake Total 100 ml 1140 ml 1095 ml OutputOutput Total 2575 ml 2150 ml BalanceBalance 100 ml -1435 ml -1055 ml Results Results 24hrs Laboratory Tests Test 02/18/19 03:54 White Blood Count 10.4 Red Blood Count 4.49 L Hemoglobin 13.5 L Hematocrit 41.7 L Mean Corpuscular Volume 92.9 Mean Corpuscular Hemoglobin 30.1 Mean Corpuscular Hemoglobin Concent 32.4 Red Cell Distribution Width 13.1 Platelet Count 192 Mean Platelet Volume 11.4 H Immature Granulocytes % 0.300 Neutrophils % 81.2 H Lymphocytes % 6.6 L Monocytes % 8.7 Eosinophils % 2.3 Basophils % 0.9 Nucleated Red Blood Cells % 0.0 Immature Granulocytes # 0.030 Neutrophils # 8.4 H Lymphocytes # 0.7 L Monocytes # 0.9 Eosinophils # 0.2 Basophils # 0.1 Nucleated Red Blood Cells # 0.0 Sodium Level 138 Potassium Level 3.9 Chloride Level 104 Carbon Dioxide Level 30 Anion Gap 4 L Blood Urea Nitrogen 17 Creatinine 1.13 Est Glomerular Filtrat Rate mL/min Glucose Level 99 Calcium Level 9.1 Vancomycin Level Trough 8.5 L Medications Medication Current Medications Vancomycin HCl (Vanco Iv Per Pharmacy) VANCOMYCIN PER PHARMACY PER PROTOCOL XX ; Start 02/15/19 at 03:30 Piperacillin Sod/ Tazobactam Sod 100 ml @ 200 mls/hr Q6 IVPB Last administered on 02/18/19at 06:24; Admin Dose 200 MLS/HR; Start 02/15/19 at 06:00 IV Flush (NS 3 ml) 3 ml PER PROTOCOL IV ; Start 02/15/19 at 03:30 Ondansetron HCl (Zofran Inj) 4 mg Q6H PRN IV NAUSEA/VOMITING; Start 02/15/19 at 03:30 Docusate Sodium (Colace) 100 mg Q12H PRN PO .CONSTIPATION; Start 02/15/19 at 03:30 Bisacodyl (Dulcolax) 5 mg DAILY PRN PO .CONSTIPATION; Start 02/15/19 at 03:30 Acetaminophen (Tylenol Tab) 650 mg Q6H PRN GTB .PAIN 1-3 OR TEMP Last administered on 02/16/19at 16:01; Admin Dose 650 MG; Start 02/15/19 at 09:30 Carbidopa/Levodopa (Sinemet (25/ 100)) 1 tab DAILY GTB Last administered on 02/18/19at 08:17; Admin Dose 1 TAB; Start 02/15/19 at 09:00 Quetiapine Fumarate (Seroquel) 25 mg QHS GTB Last administered on 02/17/19at 21:51; Admin Dose 25 MG; Start 02/15/19 at 21:00 Enoxaparin Sodium (Lovenox) 40 mg DAILY SC Last administered on 02/18/19at 0 8:24; Admin Dose 40 MG; Start 02/16/19 at 14:00 Ipratropium [place] (Atrovent 0.02% (Neb)) 0.5 mg Q2H RESP THERAPY PRN HHN SHORTNESS OF BREATH; Start 02/15/19 at 11:30 Levalbuterol (Xopenex Neb) 1.25 mg Q2H RESP THERAPY PRN HHN SHORTNESS OF BREATH; Start 02/15/19 at 11:30 Levalbuterol (Xopenex Neb) 0.63 mg Q6H RESP THERAPY HHN Last administered on 02/18/19at 01:41; Admin Dose 0.63 MG; Start 02/15/19 at 14:00; Stop 02/18/19 at 13:59 Bromocriptine Mesylate (Parlodel) 2.5 mg BID GTB Last administered on 02/18/19at 08:17; Admin Dose 2.5 MG; Start 02/17/19 at 21:00 Vancomycin/Sodium Chloride 250 ml @ 83.333 mls/ hr Q18H IVPB ; Start 02/18/19 at 23:00 DARSHAN GARZA NP Feb 18, 2019 09:56
[2019-02-18] MEDS: LEVOFLOXACIN 500MG/D5W (PMX) 100 ML IVPB SCH (10:23)
[2019-02-18] MEDS: LANSOPRAZOLE 15 MG CAP GTB SCH (11:30)
[2019-02-18 11:32] VITALS: BP 127/70; PULSE 85; RESP 18
[2019-02-18 16:01] VITALS: BP 135/60; PULSE 86; RESP 20
[2019-02-18 20:11] VITALS: BP 129/63; PULSE 88; RESP 20
[2019-02-18] MEDS: QUETIAPINE 25 MG TAB GTB SCH (20:27)
[2019-02-18] MEDS ORDERED: VANCOMYCIN 1.25 GM/NS 250 ML 250 ML IVPB SCH (23:00)
[2019-02-18 23:46] VITALS: BP 108/59; PULSE 83; RESP 20
[2019-02-19 03:14] VITALS: BP 127/65; PULSE 77; RESP 20
[2019-02-19] MEDS: LANSOPRAZOLE 15 MG CAP GTB SCH (05:27)
[2019-02-19 07:48] VITALS: BP 141/65; PULSE 82; RESP 20
[2019-02-19 07:50] VITALS: BP 137/68; PULSE 87; RESP 18
[2019-02-19] MEDS: LEVOFLOXACIN 500MG/D5W (PMX) 100 ML IVPB SCH (09:52)
[2019-02-19] MEDS: BROMOCRIPTINE 2.5 MG TAB GTB SCH (09:52)
[2019-02-19] MEDS: CARBIDOPA/LEVODOPA (25/100) TAB GTB SCH (09:52)
[2019-02-19] MEDS: ENOXAPARIN 40 MG/0.4 ML SYG SC SCH (10:10)
--- NOTE | 2019-02-19 10:36 | PDOCDIS ---
Discharge Instructions CONDITION [id number] Patient Condition: [id number] Stable HOME CARE INSTRUCTIONS: [id number] Your diet recommendation is: [id number] TUBE FEED/fIBERSOURCE FOLLOW UP/APPOINTMENTS Follow-up Plan Discharge to SNF. DARSHAN GARZA NP Feb 19, 2019 10:36
--- NOTE | 2019-02-19 10:41 | DS ---
Date/Time of Note Date/Time of Note DATE: 02/19/19 TIME: 10:40 Discharge Summary Admission/Discharge Info Admit Date/Time Feb 15, 2019 at 03:25 Discharge Date/Time Discharge Diagnosis S/P Sepsis Source: Pneumonia Pneumonia, likely healthcare associated Sputum culture: Stenotrophomonas maltophilia sensitive to fluoroquinolone Parkinson's disease/dementia History of G-tube placed Debility DNR/DNI Patient Condition: Stable Procedures 02/15/2019: Chest x-ray: MPRESSION: Cardiomegaly. Left perihilar infiltrate. Elevated right hemidiaphragm with basilar atelectasis. Small right pleural effusion. RPTAT: [facility] Hospital Course 83 yo M w/ Parkinson's disease, dementia, G-tube placed, transferred from [facility] with fever/SOB, found to have sepsis with pneumonia. Patient was treated with antibiotics, bronchodilators with improvement in his symptoms. Patient sputum culture showed stenotrophomonas maltophilia sensitive to fluoroquinolone. Sepsis resolved. Patient was continued on home medication for underlying comorbidities along with addition of bromocriptine for underlying Parkinson's disease and dementia. Patient was continued on tube feeding. Patient remained more awake. He did not have any fevers over 48 hours. He did not have any leukocytosis. He did not have any cough. Lung sounds clear. At this time, patient is stable to be discharged [facility] where he can finish his Levaquin course via G-tube. Approximately 60-minute was spent on coordinating the discharge on this patient. Patient was seen in collaboration with Dr. Lerner. Home Meds Reported Medications Quetiapine Fumarate* (Quetiapine Fumarate*) 25 Mg Tablet, 25 MG PO QHS for 30 Days, #30 TAB 02/15/19 Carbidopa/Levodopa (Carbidopa-Levodopa 25-100 Tab) 1 Each Tablet, for 90 Days TAKE 2 TABLET(S) BY MOUTH 3 TIMES A DAYTAKE 2 TABLET(S) BY MOUTH 3 TIMES A DAY 02/15/19 Quetiapine Fumarate* (Quetiapine Fumarate*) 50 Mg Tablet, 50 MG PO QHS for 90 Days 02/15/19 Follow-up Plan Discharge to SNF. Primary Care Provider Not On Staff Doctor Pending Labs Laboratory Tests Test 02/19/19 06:06 White Blood Count 9.8 10^3/ul (4.8-10.8) Red Blood Count 4.30 10^6/ul (4.70-6.10) Hemoglobin 13.0 g/dl (14.0-18.0) Hematocrit 39.8 % (42.0-52.0) Mean Corpuscular Volume 92.6 fl (82.0-101.0) Mean Corpuscular Hemoglobin 30.2 pg (29.0-33.0) Mean Corpuscular Hemoglobin Concent 32.7 g/dl (32.0-37.0) Red Cell Distribution Width 12.7 % (11.5-14.5) Platelet Count 221 10^3/UL (140-415) Mean Platelet Volume 11.2 fl (7.4-10.4) Immature Granulocytes % 0.400 % (0.001-0.429) Neutrophils % 76.0 % (39.0-77.0) Lymphocytes % 9.0 % (15.0-51.0) Monocytes % 9.0 % (0.0-11.0) Eosinophils % 4.7 % (0.0-7.0) Basophils % 0.9 % (0.0-2.0) Nucleated Red Blood Cells % 0.0 /100WBC (0.0-0.0) Immature Granulocytes # 0.040 10^3/ul (0.0-0.031) Neutrophils # 7.5 10^3/ul (1.6-7.5) Lymphocytes # 0.9 10^3/ul (0.8-2.9) Monocytes # 0.9 10^3/ul (0.3-0.9) Eosinophils # 0.5 10^3/ul (0.0-0.5) Basophils # 0.1 10^3/ul (0.0-0.1) Nucleated Red Blood Cells # 0.0 10^3/ul (0.0-0.0) DARSHAN GARZA NP Feb 19, 2019 10:41
[2019-02-19 12:09] VITALS: BP 127/70; PULSE 78; RESP 18
[2019-02-19] MEDS ORDERED: GUAIFENESIN/DM (SR) TAB PO SCH (13:00)
[2019-02-19] MEDS ORDERED: GUAIFENESIN/DM 5ML CUP PO PRN (13:30)
[2019-02-19 17:03] VITALS: BP 130/75; PULSE 83; RESP 20
== END 2019-02-19 18:05 | DRG 871 ==
LOC: E/R 01:53 → 6WM 03:25
PROVIDERS: ADMIT Family Medicine; ATTEND Internal Medicine
DX: A41.9 Sepsis, unspecified organism (principal); J18.9 Pneumonia, unspecified organism; R64 Cachexia; G20 Parkinson's disease; R13.10 Dysphagia, unspecified; Z93.1 Gastrostomy status; F02.80 Dementia in other diseases classified elsewhere, unspecified severity, without behavioral disturbance, psychotic disturbance, mood disturbance, and anxiety; R09.02 Hypoxemia; R53.81 Other malaise; Y95 Nosocomial condition; Z66 Do not resuscitate; Z68.26 Body mass index [BMI] 26.0-26.9, adult; R65.20 Severe sepsis without septic shock
CPT/HCPCS: 36415; 36600; 71045; 80048; 80053; 80202; 81003; 82803; 83036; 83605; 83735; 84443; 84484; 85025; 85610; 85730; 87070; 87081; 87086; 89220; 93005; 94640; 94664; 97110; 97163; 97530; J1644; J1650; J1956; J2543; J3370; J7030; J7040